=== PATIENT | male | born 1995 | race Caucasian/White ===

== ENCOUNTER 2022-03-18 21:49 | Inpatient (IN) ==
[2022-03-18 22:35] LABS: Appearance Urine Clear (Clear); Bilirubin Urine Negative (Negative); Blood Urine Negative (Negative); Color Urine Yellow; Glucose Urine UA Negative (Negative); Ketones Urine Negative (Negative); Leukocyte Esterase Urine Negative (Negative); Nitrite Urine Negative (Negative); Protein Urine Negative (Negative); Specific Gravity Urine 1.019 (1.000-1.030); Urobilinogen Urine Negative (Negative); pH Urine 5.5 (4.5-7.5)
[2022-03-18 22:50] LABS: Amphetamines+Metham, Urine Neg (Neg); Barbiturates, Urine Neg (Neg); Benzodiazepine, Urine Neg (Neg); Cocaine, Urine Neg (Neg); MDMA (Ecstacy), Urine Pos (Neg); Methadone, Urine Neg (Neg); Opiate, Urine Neg (Neg); Phencyclidine, Urine Neg (Neg)
[2022-03-18 22:59] LABS: Basophils # (auto) 0.04 K/uL (0-0.2); Basophils % (auto) 0.5 %; Eosinophils # (auto) 0.11 K/uL (0-0.50); Eosinophils % (auto) 1.4 %; Hematocrit (blood only) 43.5 % (40.1-51.0); Hemoglobin 15.1 g/dl (14.0-18.0); Immature Granulocytes # (auto) 0.02 K/uL (0.00-0.02); Immature Granulocytes % (auto) 0.3 %; Lymphocytes % (auto) 22.7 %; Mean Corpuscular Hemoglobin 29.2 pg (25.0-34.0); Mean Corpuscular Hgb Conc 34.7 g/dL (32.0-36.0); Mean Corpuscular Volume 84.1 fL (80.0-100.0); Mean Platelet Volume 10.1 fL (9.4-12.4); Monocytes # (auto) 0.59 K/uL (0.24-0.82); Monocytes % (auto) 7.4 %; Neutrophils # (auto) 5.36 K/uL (1.4-6.5); Neutrophils % (auto) 67.7 %; Platelet Count 283 K/uL (130-400); RDW Standard Deviation 36.5 fL (36.4-46.3); Red Blood Count 5.17 M/uL (4.63-6.08); White Blood Count 7.92 K/ul (4.8-10.8)
[2022-03-18] MEDS ORDERED: hydrOXYzine HCl 25 MG TAB PO STA (23:04)
[2022-03-18 23:17] LABS: Acetaminophen < 3 ug/ml (10-30); Albumin Globulin Ratio 1.5 (0.9-2); Albumin Level 4.7 gm/dl (3.4-5.0); BUN Creatinine Ratio 12.5 (10-20); Bilirubin,Total 0.6 mg/dl (0.2-1.0); Calcium 9.6 mg/dl (8.5-10.1); Creatinine Clr Calc Pharmacy 164.1 ml/min; Est GFR (African American) 149.2 ml/min; Est GFR (Non-African American) 128.7 ml/min; Globulin 3.1 gm/dl (2.5-4.0); Potassium 3.6 mmol/L (3.5-5.1); Salicylate < 3.0 mg/dl (3.0-30); Total Protein 7.8 gm/dl (6.0-8.3)
[2022-03-19] MEDS ORDERED: SODIUM CHLORIDE 0.65% NA SOLN 45 ML (OCEAN) PRN (00:30)
[2022-03-19] MEDS ORDERED: MAGNESIUM HYDROXIDE SUSP 30 ML UDC PO PRN (00:30)
[2022-03-19] MEDS ORDERED: hydrOXYzine HCl 25 MG TAB PO PRN (00:30)
[2022-03-19] MEDS ORDERED: ACETAMINOPHEN 325 MG TAB PO PRN (00:30)
[2022-03-19] MEDS ORDERED: ALUMINUM/MAGNESIUM SUSP 30 ML UDC PO PRN (00:30)
[2022-03-19] MEDS ORDERED: BISMUTH SUBSALICYLATE LIQD 236 ML PO PRN (00:30)
--- NOTE | 2022-03-19 00:54 | Emergency Department Note ---
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 He is following with [employer] [facility] campus and had made safety plans regarding seeking immediate medical attention if his symptoms were to worsen which she feels as they have. He does report feeling hopeless and feels he is continue to get worse. He is taking his medications as prescribed. He denies any alcohol or drug use. He denies any prior attempts to hurt himself. He is interested in voluntary inpatient admission. Patient cough, congestion, chest pain, shortness of breath, GI or symptoms. On arrival the patient is melancholy appearing but no acute distress, afebrile stable signs. He again endorses suicidal ideation with intermittent plan, depression and hopelessness. WBC, H/H and platelets within normal limits. Chemistry without out metabolic acidosis. Electrolytes and FTs unremarkable. TSH within normal limits. UA without evidence of infection. Drug screen for MDMA however likely represents cross-reactivity with the patient's bupropion. COVID-19 RNA, TAMARA test was negative. The patient was medically cleared. Given the patient's worsening depression and suicidal ideation reasonable to proceed with inpatient psychiatric treatment for stabilization. Patient was accepted to . 201 signed. Triage Nursing notes reviewed and agree them. Prior medical records reviewed Vital Signs: reviewed and remarkable for no significant abnormalities Differential diagnosis: Mood disorder, infection, hypoglycemia, electrolyte abnormalities, cardiac sources, intracerebral event, toxicologic, trauma, neurologic, as well as other pathologies. ER treatment provided: See below. 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 He is following with [employer] on campus and had made safety plans regarding seeking immediate medical attention if his symptoms were to worsen which she feels as they have. He does report feeling hopeless and feels he is continue to get worse. He is taking his medications as prescribed. He d enies any alcohol or drug use. He denies any prior attempts to hurt himself. He is interested in voluntary inpatient admission. Patient cough, congestion, chest pain, shortness of breath, GI or symptoms. ROS: See above HPI for pertinent positives & negatives. A total of 10 systems reviewed and were otherwise negative. VITALS:See Below PHYSICAL EXAMINATION: GENERAL: Awake, alert, melancholy-appearing, in no distress HENT: Normocephalic, atraumatic. Oropharynx unremarkable. EYES: Normal conjunctiva. Sclera non-icteric. NECK: Supple. No nuchal rigidity. FROM. No JVD. RESPIRATORY: Clear to auscultation. CARDIAC: Regular rate, normal rhythm. Extremities warm and well perfused. Pulses equal. ABDOMEN: Soft, non-distended. No tenderness to palpation. No rebound or guarding. No masses. RECTAL: Deferred. MUSCULOSKELETAL: Chest examination reveals no tenderness. The back is symmetrical on inspection without obvious abnormality. There is no CVA tenderness to palpation. No joint edema. LOWER EXTREMITIES: Calves are equal size bilaterally and non-tender. No edema. No discoloration. NEURO: Normal sensorium. No sensory or motor deficits noted. SKIN: No rash or jaundice noted. PSYCH: Endorses depression, SI with intermittent plan and hopelessness Hudson Marie MD Past Med/Surg History Medical History ADHD Depression Surgical History No significant past surgical history Social History Smoking Status: Never smoker Preferred Language: [place] Communication Ability: Effective Science Instructor Required: No Beliefs That Will Affect Care: None Feels Safe at Home: Yes Assistive Devices: None Allergies Allergies Allergy/AdvReac Type Severity Reaction Status Date / Time latex Allergy Intermediate Rash Verified 11/20/21 01:29 mushroom AdvReac Intermediate Gastrointestinal Verified 11/20/21 01:29 Upset Home Meds Home Medications Medication Instructions Recorded Confirmed methylphenidate HCl 54 mg 54 mg PO QAM 11/20/21 03/18/22 tablet,extended release 24 hr bupropion HCl 150 mg 24 hr tablet, 150 mg PO DAILY 03/18/22 03/18/22 extended release Results & Data (ED) Vital Signs Vital Signs - 24 hr 03/18/22 21:50 Temperature 36.8 C Temperature Source Temporal Artery Scan Pulse Rate 88 Respiratory Rate 18 Respiratory Effort / Characteristics Non-Labored Spontaneous Respiratory Depth Normal Respiratory Pattern Regular Blood Pressure 141/88 H Blood Pressure Mean 105 Blood Pressure Position Sitting Pulse Oximetry 95 Oxygen Delivery Method Room Air Sepsis Recent Fever Within 48 Hours No Sepsis New/Unexplained Change in Mental Status No Sepsis Action Taken by Nursing No Action Required Laboratory Data Attestation: I reviewed the patient's lab results. Result diagrams: 03/18/22 22:48 03/18/22 22:48 Lab Results 03/18/22 03/18/22 03/18/22 Range/Units 22:21 22:21 22:45 WBC (4.8-10.8) K/ul RBC (4.63-6.08) M/uL Hgb (14.0-18.0) g/dl Hct (40.1-51.0) % MCV (80.0-100.0) fL MCH (25.0-34.0) pg MCHC (32.0-36.0) g/dL RDW Std Deviation (36.4-46.3) fL RDW Coeff of Nicki (11.5-14.5) % Plt Count (130-400) K/uL MPV (9.4-12.4) fL Immature Gran % (Auto) % Neut % (Auto) % Lymph % (Auto) % [place] % (Auto) % Eos % (Auto) % Baso % (Auto) % Neut # (Auto) (1.4-6.5) K/uL Lymph # (Auto) (1.2-3.4) K/uL [place] # (Auto) (0.24-0.82) K/uL Eos # (Auto) (0-0.50) K/uL Baso # (Auto) (0-0.2) K/uL Immature Gran # (Auto) (0.00-0.02) K/uL Sodium (136-145) mmol/L Potassium (3.5-5.1) mmol/L Chloride (98-107) mmol/L Carbon Dioxide (21-32) mmol/L Anion Gap (3-11) BUN (6-23) mg/dl Creatinine (0.6-1.4) mg/dl Est Cr Clr Drug Dosing ml/min Est GFR ( Amer) ml/min Est GFR (Non-Af Amer) ml/min BUN/Creatinine Ratio (10-20) Glucose (70-99(Fasting)) mg/dl Calcium (8.5-10.1) mg/dl Total Bilirubin (0.2-1.0) mg/dl AST (13-39) U/L ALT (7-52) U/L Alkaline Phosphatase (34-104) U/L Total Protein (6.0-8.3) gm/dl Albumin (3.4-5.0) gm/dl Globulin (2.5-4.0) gm/dl Albumin/Globulin Ratio (0.9-2) TSH (0.300-4.500) uIu/ml Urine Color Yellow Urine Appearance Clear (Clear) Urine pH 5.5 (4.5-7.5) Ur Specific [place] 1.019 (1.000-1.030) Urine Protein Negative (Negative) Urine Glucose (UA) Negative (Negative) Urine Ketones Negative (Negative) Urine Blood Negative (Negative) Urine Nitrite Negative (Negative) Urine Bilirubin Negative (Negative) Urine Urobilinogen Negative (Negative) Ur Leukocyte Esterase Negative (Negative) Salicylates (3.0-30) mg/dl Urine Opiates Screen Neg (Neg) Ur Methadone, Qual Neg (Neg) Acetaminophen (10-30) ug/ml Urine Barbiturates Neg (Neg) Ur Phencyclidine (PCP) Neg (Neg) U Amphetamin/Meth Scrn Neg (Neg) MDMA (Ecstasy) Screen Pos H (Neg) U Benzodiazepines Scrn Neg (Neg) Ur Cocaine Metabolite Neg (Neg) U Marijuana (THC) Screen Neg (Neg) Ethyl Alcohol mg/dL (<10.0) mg/dl SARS-CoV-2, RNA, NAAT NEGATIVE (NEGATIVE) 03/18/22 03/18/22 03/18/22 Range/Units 22:48 22:48 22:48 WBC 7.92 (4.8-10.8) K/ul RBC 5.17 (4.63-6.08) M/uL Hgb 15.1 (14.0-18.0) g/dl Hct 43.5 (40.1-51.0) % MCV 84.1 (80.0-100.0) fL MCH 29.2 (25.0-34.0) pg MCHC 34.7 (32.0-36.0) g/dL RDW Std Deviation 36.5 (36.4-46.3) fL RDW Coeff of Nicki 12.0 (11.5-14.5) % Plt Count 283 (130-400) K/uL MPV 10.1 (9.4-12.4) fL Immature Gran % (Auto) 0.3 % Neut % (Auto) 67.7 % Lymph % (Auto) 22.7 % [place] % (Auto) 7.4 % Eos % (Auto) 1.4 % Baso % (Auto) 0.5 % Neut # (Auto) 5.36 (1.4-6.5) K/uL Lymph # (Auto) 1.80 (1.2-3.4) K/uL [place] # (Auto) 0.59 (0.24-0.82) K/uL Eos # (Auto) 0.11 (0-0.50) K/uL Baso # (Auto) 0.04 (0-0.2) K/uL Immature Gran # (Auto) 0.02 (0.00-0.02) K/uL Sodium 138 (136-145) mmol/L Potassium 3.6 (3.5-5.1) mmol/L Chloride 103 (98-107) mmol/L Carbon Dioxide 28 (21-32) mmol/L Anion Gap 7 (3-11) BUN 9 (6-23) mg/dl Creatinine 0.72 (0.6-1.4) mg/dl Est Cr Clr Drug Dosing 164.1 ml/min Est GFR ( Amer) 149.2 ml/min Est GFR (Non-Af Amer) 128.7 ml/min BUN/Creatinine Ratio 12.5 (10-20) Glucose 85 (70-99(Fasting)) mg/dl Calcium 9.6 (8.5-10.1) mg/dl Total Bilirubin 0.6 (0.2-1.0) mg/dl AST 23 (13-39) U/L ALT 34 (7-52) U/L Alkaline Phosphatase 105 H (34-104) U/L Total Protein 7.8 (6.0-8.3) gm/dl Albumin 4.7 (3.4-5.0) gm/dl Globulin 3.1 (2.5-4.0) gm/dl Albumin/Globulin Ratio 1.5 (0.9-2) TSH 1.409 (0.300-4.500) uIu/ml Urine Color Urine Appearance (Clear) Urine pH (4.5-7.5) Ur Specific [place] (1.000-1.030) Urine Protein (Negative) Urine Glucose (UA) (Negative) Urine Ketones (Negative) Urine Blood (Negative) Urine Nitrite (Negative) Urine Bilirubin (Negative) Urine Urobilinogen (Negative) Ur Leukocyte Esterase (Negative) Salicylates (3.0-30) mg/dl Urine Opiates Screen (Neg) Ur Methadone, Qual (Neg) Acetaminophen (10-30) ug/ml Urine Barbiturates (Neg) Ur Phencyclidine (PCP) (Neg) U Amphetamin/Meth Scrn (Neg) MDMA (Ecstasy) Screen (Neg) U Benzodiazepines Scrn (Neg) Ur Cocaine Metabolite (Neg) U Marijuana (THC) Screen (Neg) Ethyl Alcohol mg/dL (<10.0) mg/dl SARS-CoV-2, RNA, NAAT (NEGATIVE) 03/18/22 03/18/22 Range/Units 22:48 22:48 WBC (4.8-10.8) K/ul RBC (4.63-6.08) M/uL Hgb (14.0-18.0) g/dl Hct (40.1-51.0) % MCV (80.0-100.0) fL MCH (25.0-34.0) pg MCHC (32.0-36.0) g/dL RDW Std Deviation (36.4-46.3) fL RDW Coeff of Nicki (11.5-14.5) % Plt Count (130-400) K/uL MPV (9.4-12.4) fL Immature Gran % (Auto) % Neut % (Auto) % Lymph % (Auto) % [place] % (Auto) % Eos % (Auto) % Baso % (Auto) % Neut # (Auto) (1.4-6.5) K/uL Lymph # (Auto) (1.2-3.4) K/uL [place] # (Auto) (0.24-0.82) K/uL Eos # (Auto) (0-0.50) K/uL Baso # (Auto) (0-0.2) K/uL Immature Gran # (Auto) (0.00-0.02) K/uL Sodium (136-145) mmol/L Potassium (3.5-5.1) mmol/L Chloride (98-107) mmol/L Carbon Dioxide (21-32) mmol/L Anion Gap (3-11) BUN (6-23) mg/dl Creatinine (0.6-1.4) mg/dl Est Cr Clr Drug Dosing ml/min Est GFR ( Amer) ml/min Est GFR (Non-Af Amer) ml/min BUN/Creatinine Ratio (10-20) Glucose (70-99(Fasting)) mg/dl Calcium (8.5-10.1) mg/dl Total Bilirubin (0.2-1.0) mg/dl AST (13-39) U/L ALT (7-52) U/L Alkaline Phosphatase (34-104) U/L Total Protein (6.0-8.3) gm/dl Albumin (3.4-5.0) gm/dl Globulin (2.5-4.0) gm/dl Albumin/Globulin Ratio (0.9-2) TSH (0.300-4.500) uIu/ml Urine Color Urine Appearance (Clear) Urine pH (4.5-7.5) Ur Specific [place] (1.000-1.030) Urine Protein (Negative) Urine Glucose (UA) (Negative) Urine Ketones (Negative) Urine Blood (Negative) Urine Nitrite (Negative) Urine Bilirubin (Negative) Urine Urobilinogen (Negative) Ur Leukocyte Esterase (Negative) Salicylates < 3.0 L (3.0-30) mg/dl Urine Opiates Screen (Neg) Ur Methadone, Qual (Neg) Acetaminophen < 3 L (10-30) ug/ml Urine Barbiturates (Neg) Ur Phencyclidine (PCP) (Neg) U Amphetamin/Meth Scrn (Neg) MDMA (Ecstasy) Screen (Neg) U Benzodiazepines Scrn (Neg) Ur Cocaine Metabolite (Neg) U Marijuana (THC) Screen (Neg) Ethyl Alcohol mg/dL < 10.0 (<10.0) mg/dl SARS-CoV-2, RNA, NAAT (NEGATIVE) Administered Medications Discontinued Medications Hydroxyzine HCl (Hydroxyzine Hcl 25 Mg Tab) 50 mg PO NOW STA Stop: 03/18/22 23:05 Last Admin: 03/18/22 23:12 Dose: 50 mg Documented By: RD Discharge Plan Visit Data Chief Complaint: Psychiatric Symptoms/Problems Stated Complaint: SUICIDAL THOUGHTS ED Provider: Hudson Marie Discharge Problem: Depression, Suicidal ideation Patient Disposition: Admitted As Inpatient Discharge Instructions Interventions: ED Discharge Assessment Last Done: 03/19/22 01:49
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
[2022-03-19] MEDS ORDERED: NON-FORMULARY MEDICATION (Methylphenidate Hcl 54 mg tablet extended release 24hr) PO SCH (12:15)
[2022-03-19] MEDS: buPROPion XL 150 MG TABCR PO SCH (13:01)
[2022-03-20] MEDS: buPROPion XL 150 MG TABCR PO SCH (08:54)
[2022-03-20] MEDS: PATIENT'S OWN CONTROLLED MED 1 EXT SCH (08:55)
[2022-03-20] MEDS: METHYLPHENIDATE PO SCH (08:55)
[2022-03-20] MEDS: HYDROCORTISONE 1% CRM 30 GM TUBE EXT SCH ×2 (12:03→20:42)
--- NOTE | 2022-03-20 14:07 | Psychiatric Progress Note ---
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 They were admitted for SI with plan, contracts for safety on unit. (1) Depression: (2) Suicidal ideation: (3) ADHD: Plan 03/20/22: The patient declines increase in Wellbutrin or change in ADHd medication. Dr. Hallman contacted me that therapist may have concerns continuing to follow via telehealth on an outpatient basis given 03/19/22: The patient was admitted to the [facility] ([facility] mental health unit) on q15 min checks (behavioral with suicide precautions) for safety. The patient will participate in group, recreational, and milieu therapies and will be offered additional individual and family sessions as clinically appropriate. Establish baseline and coordinate care with Dr. Hallman. Patient is considering a medical withdrawal and mood likely to improve when details are hashed out. Consider Wellbutrin titration. Inventory Assets Strengths: intelligent, love of partner Needs: support around communication with university, possible medical leave. 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 Chief Complaint "I just think it's a caustic environment." Review of Systems Sleep Information Total Hours of Sleep: 6 Meal Information Percent Meal Consumed - Breakfast: 100 Percent Meal Consumed - Lunch: 100 Percent Meal Consumed - Dinner: 100 Subjective Subjective Patient was seen & assessed and interval progress reviewed with nursing and social work. 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 They do have a Master's degree already and are somewhat torn about length of a LEENA and what they would do with that time. Physical Exam Psychiatric Orientation: alert and oriented x 3 Apperance: appropriately dressed and appropriately groomed Eye Contact: good eye contact Motor Behavior: no abnormal motor movements Speech: normal rate/rhythm/volume of speech Affect: + depressed affect Mood: + depressed mood Thought Process: goal directed thought process Thought Content: reality based without delusions Suicidal Thoughts: denies suicidal thoughts Homicidal Thoughts: denies homicidal thoughts Hallucinations: no auditory hallucinations and no visual hallucinations Cognition: attention grossly intact and language grossly intact Estimated Intelligence: consistent with education level Insight: + limited insight Judgement: + limited judgement Vital Signs (Past 24 Hours) Last Vital Signs Temp 36.3 C L 03/20/22 06:32 Pulse 92 H 03/20/22 06:33 Resp 16 03/20/22 06:32 BP 108/69 03/20/22 06:33 Pulse Ox 97 03/19/22 02:11 O2 Del Method 03/19/22 01:49 Results & Data ([facility]) Current Inpatient Medications Current Inpatient Medications: Current Inpatient Medications Acetaminophen (Acetaminophen 325 Mg Tab) 650 mg PO Q4H PRN PRN Reason: Headache or Minor Fever Stop: 04/18/22 00:29 Al Hydrox/Mg Hydrox/Simethicone (Aluminum/Magnesium Susp 30 Ml Udc) 30 ml PO Q4H PRN PRN Reason: GI Upset Stop: 04/18/22 00:29 Bismuth Subsalicylate (Bismuth Subsalicylate Liqd 236 Ml) 15 ml PO PRN PRN PRN Reason: Loose Stool Stop: 04/18/22 00:29 Bupropion HCl (Bupropion Xl 150 Mg Tabcr) 150 mg PO DAILY MALINI Stop: 04/18/22 12:14 Last Admin: 03/20/22 08:54 Dose: 150 mg Hydrocortisone (Hydrocortisone 1% Crm 30 Gm Tube) 1 appln EXT BID MALINI Stop: 04/19/22 10:44 Last Admin: 03/20/22 12:03 Dose: 1 appln Hydroxyzine HCl (Hydroxyzine Hcl 25 Mg Tab) 50 mg PO HSZ PRN PRN Reason: Insomnia Stop: 04/18/22 00:29 Magnesium Hydroxide (Magnesium Hydroxide Susp 30 Ml Udc) 30 ml PO DAILY PRN PRN Reason: Constipation Stop: 04/18/22 00:29 Methylphenidate HCl (Methylphenidate) 1 each PO DAILY MALINI Stop: 04/03/22 08:59 Last Admin: 03/20/22 08:55 Dose: 1 each Non-Formulary Medication (Patient's Own Controlled Med 1) 1 each EXT DAILY MALINI Stop: 04/03/22 08:59 Last Admin: 03/20/22 08:55 Dose: Not Given Sodium Chloride (Sodium Chloride 0.65% Na Soln 45 Ml ([place])) 1 - 2 sprays NA PRN PRN PRN Reason: Nasal Dryness/Congestion Stop: 04/18/22 00:29 Mental Health & Subst Abuse Tx Therapist Name of Therapist: [facility] Date of Therapist Appointment: 03/19/22 Post Discharge Appointments Primary Care Physician Name Of Family Doctor: SEEMA
[2022-03-21] MEDS: buPROPion XL 150 MG TABCR PO SCH (08:37)
[2022-03-21] MEDS: HYDROCORTISONE 1% CRM 30 GM TUBE EXT SCH ×2 (08:37→20:31)
[2022-03-21] MEDS: PATIENT'S OWN CONTROLLED MED 1 EXT SCH (08:38)
[2022-03-21] MEDS: METHYLPHENIDATE PO SCH (08:38)
--- NOTE | 2022-03-21 14:09 | Psychiatric Progress Note ---
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 They were admitted for SI with plan, contracts for safety on unit. 03/21/22: improving (1) Depression: (2) Suicidal ideation: (3) ADHD: Plan 03/21/22: continue CBT and planning for LEENA. 03/20/22: The patient declines increase in Wellbutrin or change in ADHd medication. Dr. Hallman contacted me that therapist may have concerns continuing to follow via telehealth on an outpatient basis given 03/19/22: The patient was admitted to the [facility]) on q15 min checks (behavioral with suicide precautions) for safety. The patient will participate in group, recreational, and milieu therapies and will be offered additional individual and family sessions as clinically appropriate. Establish baseline and coordinate care with Dr. Hallman. Patient is considering a medical withdrawal and mood likely to improve when details are hashed out. Consider Wellbutrin titration. Inventory Assets Strengths: intelligent, love of partner Needs: support around communication with university, possible medical leave. 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 Chief Complaint "my thoughts are circular, I have unrealistic expectations". Review of Systems Sleep Information Total Hours of Sleep: 5.5 Meal Information Percent Meal Consumed - Breakfast: 70 Percent Meal Consumed - Lunch: 100 Percent Meal Consumed - Dinner: 100 Subjective Subjective Patient was seen & assessed and interval progress reviewed with nursing and social work. States that partner is supportive. triggered by anxiety yesterday as typical day they meet with PI. Still working out logistics of LEENA. Physical Exam Psychiatric Orientation: alert and oriented x 3 Apperance: appropriately dressed and appropriately groomed Eye Contact: good eye contact Motor Behavior: no abnormal motor movements Speech: normal rate/rhythm/volume of speech Affect: + depressed affect Mood: + anxious mood Thought Process: + perseveration Thought Content: reality based without delusions Suicidal Thoughts: denies suicidal thoughts, denies suicidal plan and denies suicidal intent Homicidal Thoughts: denies homicidal thoughts Hallucinations: no auditory hallucinations and no visual hallucinations Cognition: attention grossly intact and language grossly intact Estimated Intelligence: consistent with education level Insight: + limited insight Judgement: + limited judgement Vital Signs (Past 24 Hours) Last Vital Signs Temp 36.3 C L 03/21/22 06:32 Pulse 87 03/21/22 06:32 Resp 16 03/21/22 06:32 BP 113/76 03/21/22 06:32 Pulse Ox 97 03/19/22 02:11 O2 Del Method 03/19/22 01:49 Results & Data ([facility]) Current Inpatient Medications Current Inpatient Medications: Current Inpatient Medications Acetaminophen (Acetaminophen 325 Mg Tab) 650 mg PO Q4H PRN PRN Reason: Headache or Minor Fever Stop: 04/18/22 00:29 Al Hydrox/Mg Hydrox/Simethicone (Aluminum/Magnesium Susp 30 Ml Udc) 30 ml PO Q4H PRN PRN Reason: GI Upset Stop: 04/18/22 00:29 Bismuth Subsalicylate (Bismuth Subsalicylate Liqd 236 Ml) 15 ml PO PRN PRN PRN Reason: Loose Stool Stop: 04/18/22 00:29 Bupropion HCl (Bupropion Xl 150 Mg Tabcr) 150 mg PO DAILY MALINI Stop: 04/18/22 12:14 Last Admin: 03/21/22 08:37 Dose: 150 mg Hydrocortisone (Hydrocortisone 1% Crm 30 Gm Tube) 1 appln EXT BID MALINI Stop: 04/19/22 10:44 Last Admin: 03/21/22 08:37 Dose: 1 appln Hydroxyzine HCl (Hydroxyzine Hcl 25 Mg Tab) 50 mg PO HSZ PRN PRN Reason: Insomnia Stop: 04/18/22 00:29 Magnesium Hydroxide (Magnesium Hydroxide Susp 30 Ml Udc) 30 ml PO DAILY PRN PRN Reason: Constipation Stop: 04/18/22 00:29 Methylphenidate HCl (Methylphenidate) 1 each PO DAILY MALINI Stop: 04/03/22 08:59 Last Admin: 03/21/22 08:38 Dose: 1 each Non-Formulary Medication (Patient's Own Controlled Med 1) 1 each EXT DAILY MALINI Stop: 04/03/22 08:59 Last Admin: 03/21/22 08:38 Dose: Not Given Sodium Chloride (Sodium Chloride 0.65% Na Soln 45 Ml ([place])) 1 - 2 sprays NA PRN PRN PRN Reason: Nasal Dryness/Congestion Stop: 04/18/22 00:29 Mental Health & Subst Abuse Tx Therapist Name of Therapist: [facility] Date of Therapist Appointment: 03/19/22 Post Discharge Appointments Primary Care Physician Name Of Family Doctor: SEEMA
[2022-03-22] MEDS: HYDROCORTISONE 1% CRM 30 GM TUBE EXT SCH ×2 (09:04→21:40)
[2022-03-22] MEDS: buPROPion XL 150 MG TABCR PO SCH (09:04)
[2022-03-22] MEDS: METHYLPHENIDATE PO SCH (09:08)
[2022-03-22] MEDS: PATIENT'S OWN CONTROLLED MED 1 EXT SCH (09:09)
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
[2022-03-22 12:41] LABS: MDA negative; MDEA negative; MDMA (Ecstasy) Urine, Confirm negative
[2022-03-22] MEDS ORDERED: PROPRANOLOL HCL 20 MG TAB PO PRN (13:49)
[2022-03-23] MEDS: buPROPion XL 150 MG TABCR PO SCH (08:45)
[2022-03-23] MEDS: HYDROCORTISONE 1% CRM 30 GM TUBE EXT SCH (08:45)
[2022-03-23] MEDS: METHYLPHENIDATE PO SCH (08:49)
[2022-03-23] MEDS: PATIENT'S OWN CONTROLLED MED 1 EXT SCH (08:49)
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
== END 2022-03-23 12:11 | disposition home or self-care (01) | DRG 881 ==
LOC: ED 21:49 → 3S 03-19 00:30 → SUATTDRO 03-19 00:30 → 3S 03-19 01:49